=== PATIENT | male | born 1980 | race Two or more races ===

== ENCOUNTER 2018-11-07 20:42 | Emergency (ER) | payer MEDICAID, OTHER ==
[~2018-11-07] VITALS: Ht 167.6 cm; Wt 79.4 kg
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
--- NOTE | 2018-11-07 20:52 | NUR ---
POLO DUEÑAS AT BEDSIDE FOR MSE.
[2018-11-07] MEDS ORDERED: LEVE1000 PO (20:54)
[2018-11-07] MEDS ORDERED: PHEN100C4 PO (20:54)
--- NOTE | 2018-11-07 21:00 | NUR ---
PT HAS AN ESTABLISHED IV ACCESS - 20G L HAND - PLACED BY [facility].
[2018-11-07 21:01] LABS: BASOPHILS % (AUTO) 0.3 % (0.0-2.0); EOSINOPHILS # (AUTO) 0.1 K/uL (0.0-0.7); EOSINOPHILS % (AUTO) 0.9 % (0.0-7.0); HEMATOCRIT 44.2 % (36.7-47.1); HEMOGLOBIN 15.5 g/dL (12.5-16.3); LYMPHOCYTES # (AUTO) 0.8 K/uL (20.0-40.0); LYMPHOCYTES % (AUTO) 9.9 % (20.5-51.5); MEAN CORPUSCULAR HEMOGLOBIN 29.2 uug (23.8-33.4); MEAN CORPUSCULAR HGB CONC 35 g/dL (32.5-36.3); MEAN CORPUSCULAR VOLUME 83.5 fL (73.0-96.2); MONOCYTES # (AUTO) 0.5 K/uL (2.0-10.0); MONOCYTES % (AUTO) 5.6 % (0.0-11.0); NEUTROPHILS % (AUTO) 83.3 % (38.5-71.5); PLATELET COUNT (AUTO) 221 K/uL (152-348); RED BLOOD CELL COUNT(AUTO) 5.29 MIL/uL (4.06-5.63); WHITE BLOOD COUNT (AUTO) 8.4 K/uL (3.6-10.2)
--- NOTE | 2018-11-07 21:08 | NUR ---
PT TAKEN TO RADIOLOGY FOR CT SCAN.
[2018-11-07 21:12] LABS: CREATININE 0.9 mg/dL (0.6-1.3); POTASSIUM 3.6 mmol/L (3.5-5.1)
[2018-11-07 21:18] LABS: BILIRUBIN,TOTAL 0.3 mg/dL (0.2-1.0); PHENYTOIN (DILANTIN) 2.4 ug/mL (10.0-20.0); TOTAL PROTEIN, SERUM 7.3 g/dL (6.4-8.2)
--- NOTE | 2018-11-07 21:20 | NUR ---
PT BACK IN DEPARTMENT FROM CT SCAN.
[2018-11-07] MEDS ORDERED: LEVETIRACETAM 500 MG/5 ML VIAL IV ONE (21:35)
[2018-11-07] MEDS: LEVETIRACETAM IV 500 MG in IV DEXTROSE 5% 100 ML IV ONE (21:46)
[2018-11-07] MEDS ORDERED: PHENYTOIN SODIUM 250 MG/5 ML VIAL IV ONE (22:07)
[2018-11-07] MEDS: PHENYTOIN SODIUM IV 1,000 MG in IV NORMAL SALINE 100 ML IV ONE (22:16)
--- NOTE | 2018-11-07 23:22 | NUR ---
Patient discharged to home in stable conditon. Written and verbal after care instructions given. Patient verbalizes understanding of instructions. ALL BELONGINGS W/ PT. PT SELF-AMBULATED W/O DIFFICULTY. 20G IV ACCESS IN L HAND REMOVED PRIOR TO D/C - INNER CANNULA INTACT. PT STATES HIS COUSIN WILL DRIVE HIM HOME.
[2018-11-07 23:23] VITALS: BP 113/76
--- NOTE | 2018-11-07 23:24 | NUR ---
DILANTIN IV 1,000 MG IN IV SODIUM CHLORIDE 0.9% 100 ML - COMPLETED AT 2324 KEPPRA IV 500 MG IN IV DEXTROSE 5% 100 ML - COMPLETED AT 2159.
== END 2018-11-07 23:24 | disposition home or self-care (01) ==
LOC: ER 20:44
DX: G40.909 Epilepsy, unspecified, not intractable, without status epilepticus (principal); Z79.899 Other long term (current) drug therapy; V89.2XXA Person injured in unspecified motor-vehicle accident, traffic, initial encounter; Y93.89 Activity, other specified; Y92.89 Other specified places as the place of occurrence of the external cause; Y99.8 Other external cause status
CPT/HCPCS: 36415; 70450; 80053; 80185; 85025; 96365; 96375; 99284; J1165; J1953; J7060; A4663; J3490